=== PATIENT | female | born 1940 | race Caucasian/White ===

== ENCOUNTER 2020-02-27 10:44 | Inpatient (IN) | payer MEDICARE, OTHER ==
[~2020-02-27] VITALS: Ht 162.6 cm; Wt 35.4 kg
[~2020-02-27 10:44] MED LIST: HYDR-3927 PO; PANT40TA54 PO
[2020-02-27 11:33] LABS: BASOPHILS % (AUTO) 0.4 % (0-1); EOSINOPHILS % (AUTO) 0.4 % (0-6); HEMOGLOBIN 9.3 g/dl (12.0-16.0); LYMPHOCYTES # (AUTO) 0.4 X10'3 (1.1-4.8); LYMPHOCYTES % (AUTO) 5.3 % (21-51); MEAN CORPUSCULAR HEMOGLOBIN 23.2 PG (27.0-31.0); MEAN CORPUSCULAR HGB CONC 30.8 g/dL (33.0-36.5); MEAN CORPUSCULAR VOLUME 75.1 FL (78-98); MEAN PLATELET VOLUME 6.5 FL (7.4-10.4); MONOCYTES # (AUTO) 0.6 X10'3 (0-0.9); MONOCYTES % (AUTO) 7.7 % (2-12); NEUTROPHILS % (AUTO) 86.2 % (42-75); PLATELET COUNT 397 X10'3 (140-440); RED CELL DISTRIBUTION WIDTH 21.7 % (11.5-14.5); WHITE BLOOD COUNT 8.1 X10'3 (4.5-11.0)
[2020-02-27 11:47] LABS: ALANINE AMINOTRANSFERASE 26 U/L (12-78); ALBUMIN/GLOBULIN RATIO 0.7 (1.1-1.5); ALKALINE PHOSPHATASE 102 IU/L (46-116); ANION GAP 8 (8-16); ASPARTATE AMINO TRANSFERASE 29 U/L (10-37); BILIRUBIN,TOTAL 0.3 MG/DL (0.1-1.0); BLOOD UREA NITROGEN 26 MG/DL (7-18); BUN/CREATININE RATIO 30.6 (6.6-38.0); CALCIUM 9.1 MG/DL (8.5-10.1); CHLORIDE 108 MMOL/L (99-107); CREATININE 0.85 MG/DL (0.40-0.90); GLUCOSE 123 MG/DL (70-104); POTASSIUM 3.9 MMOL/L (3.5-5.1); SODIUM 145 MMOL/L (135-145); TOTAL CARBON DIOXIDE 29.2 MMOL/L (24-32); TOTAL PROTEIN 7.3 G/DL (6.4-8.2); eGFR 64 ML/MIN
[2020-02-27 12:08] LABS: ANISOCYTOSIS 3+; ELLIPTOCYTES 1+; MICROCYTOSIS 1+; PLATELET ESTIMATE NORMAL
[2020-02-27 12:09] LABS: POLYCHROMASIA FEW; SPHEROCYTES FEW
[2020-02-27 13:45] LABS: CLARITY,URINE SLIGHTLY CLOUDY (Clear); COLOR,URINE YELLOW (Yellow); GLUCOSE, URINE NEGATIVE (Neg); KETONES,URINE TRACE mg/dl (Neg); LEUKOCYTE ESTERASE ,URINE NEGATIVE (Neg); NITRITES, URINE NEGATIVE (Neg); OCCULT BLOOD,URINE NEGATIVE (Neg); PH,URINE 5.5 (4.8-8.0); PROTEIN,URINE 30 mg/dl (Neg); UA COLLECTION TYPE STRAIGHT CATH
[2020-02-27 13:50] LABS: HYALINE CASTS 0-3 /LPF (NEGATIVE); MUCUS STRANDS MANY /LPF (Neg); SQUAMOUS EPITHELIAL CELL,UR FEW /LPF (FEW); TRANSITIONAL EPI CELLS,URINE MODERATE /HPF
[2020-02-27 13:52] LABS: RENAL CELLS, URINE MODERATE /HPF
[2020-02-27 13:53] LABS: BACTERIA,URINE NONE SEEN /HPF (Neg); RBC,URINE 0-2 /HPF (0-2); WBC,URINE 0-4 /HPF (0-4)
[2020-02-27] MEDS ORDERED: normal saline 1000ml 1,000 ML IV ONE (14:50)
--- NOTE | 2020-02-27 14:50 | NUR ---
ASSIST PROVIDER WITH RECTAL EXAM. HEMOCULT IS POSITIVE
[2020-02-27] MEDS ORDERED: pantoprazole 40 MG vial IV ONE (14:55)
[2020-02-27] MEDS ORDERED: magnesium 4gm in 100ml NS 100 ML IV PRN (15:35)
[2020-02-27] MEDS ORDERED: ondansetron/PF 4mg/2ml inj IV PRN (15:35)
[2020-02-27] MEDS ORDERED: acetaminophen 325mg tablet PO PRN ×2 (15:35)
[2020-02-27] MEDS ORDERED: HYDROcodone/acetaminophen 10/325mg tab PO PRN (15:35)
[2020-02-27] MEDS ORDERED: morphine 2 MG/ML inj. syringe IV PRN ×2 (15:35)
[2020-02-27] MEDS ORDERED: potassium Cl 20 mEq SR tablet PO PRN (15:35)
[2020-02-27] MEDS ORDERED: potassium CL 10mEq/100ml bag 100 ML IV PRN ×2 (15:35)
[2020-02-27] MEDS ORDERED: HYDROcodone/acetaminophen 5mg/325mg tablet PO PRN (15:35)
[2020-02-27] MEDS ORDERED: magnesium hydroxide 30ml (MOM) UD suspension PO PRN (15:35)
[2020-02-27] MEDS ORDERED: magnesium 2GM in 50ml NS 50 ML IV PRN (15:35)
[2020-02-27] MEDS: normal saline 1000ml 1,000 ML IV SCH (15:35)
[2020-02-27] MEDS ORDERED: diphenhydrAMINE 25mg capsule PO PRN (15:35)
[2020-02-27] MEDS ORDERED: bisacodyl 10mg suppository rectal RC PRN (15:35)
[2020-02-27] MEDS ORDERED: acetaminophen 650mg rectal suppository RC PRN (15:35)
[2020-02-27] MEDS ORDERED: magnesium Cl slow-release 64mg tablet PO PRN (15:35)
[2020-02-27] MEDS ORDERED: mag hydrox/Alum hydrox/simeth 30ml oral suspension PO PRN (15:35)
[2020-02-27 16:14] LABS: HEMOGLOBIN A1C 4.7 % (4.5-6.2)
[2020-02-27 16:15] LABS: IRON 17 UG/DL (49-151); TOTAL IRON BINDING CAPACITY 281 UG/DL (259-388)
[2020-02-27 16:16] LABS: % IRON SATURATION 6 % (11-46)
[2020-02-27] MEDS ORDERED: PANT40TA54 PO (16:17)
[2020-02-27] MEDS: sodium ferric gluc complex inj 125 MG in normal saline 100ml IV soln 90 ML IV SCH (16:32)
[2020-02-27 19:15] VITALS: BP 157/85
--- NOTE | 2020-02-27 19:15 | NUR ---
Patient in room ORTHO 4009. I have received report from JAKE Laureano in ED and had the opportunity to ask questions and assume patient care.
[2020-02-27] MEDS: docusate sod 100mg capsule PO SCH (19:51)
[2020-02-27] MEDS: K and/or MAG REPLACEMENT MC SCH (20:00)
[2020-02-27] MEDS ORDERED: temazepam 15mg capsule PO PRN (21:00)
[2020-02-27 22:00] VITALS: BP 173/80
[2020-02-28] MEDS: normal saline 1000ml 1,000 ML IV SCH ×3 (02:49→21:35)
[2020-02-28 06:00] VITALS: BP 144/60
--- NOTE | 2020-02-28 06:35 | NUR ---
Problems reprioritized. Patient report given, questions answered & plan of care reviewed with JAKE Liu.
[2020-02-28 06:58] LABS: BASOPHILS % (AUTO) 0.5 % (0-1); EOSINOPHILS # (AUTO) 0.2 X10'3 (0-0.9); EOSINOPHILS % (AUTO) 2.4 % (0-6); HEMOGLOBIN 8.6 g/dl (12.0-16.0); LYMPHOCYTES # (AUTO) 0.6 X10'3 (1.1-4.8); LYMPHOCYTES % (AUTO) 8.4 % (21-51); MEAN CORPUSCULAR HEMOGLOBIN 23.4 PG (27.0-31.0); MEAN CORPUSCULAR HGB CONC 30.8 g/dL (33.0-36.5); MEAN CORPUSCULAR VOLUME 75.9 FL (78-98); MEAN PLATELET VOLUME 6.7 FL (7.4-10.4); MONOCYTES # (AUTO) 0.7 X10'3 (0-0.9); MONOCYTES % (AUTO) 9.5 % (2-12); NEUTROPHILS # (AUTO) 5.7 X10'3 (1.8-7.7); NEUTROPHILS % (AUTO) 79.2 % (42-75); PLATELET COUNT 329 X10'3 (140-440); RED BLOOD COUNT 3.68 X10'6 (4.20-5.60); RED CELL DISTRIBUTION WIDTH 21.6 % (11.5-14.5); WHITE BLOOD COUNT 7.2 X10'3 (4.5-11.0)
--- NOTE | 2020-02-28 07:00 | NUR ---
Patient in room ORTHO 4009. I have received report from Daisy and had the opportunity to ask questions and assume patient care.
[2020-02-28 07:08] LABS: ALANINE AMINOTRANSFERASE 17 U/L (12-78); ALBUMIN 2.5 G/DL (3.4-5.0); ALBUMIN/GLOBULIN RATIO 0.7 (1.1-1.5); ALKALINE PHOSPHATASE 89 IU/L (46-116); ANION GAP 9 (8-16); ASPARTATE AMINO TRANSFERASE 27 U/L (10-37); BILIRUBIN,TOTAL 0.4 MG/DL (0.1-1.0); BLOOD UREA NITROGEN 14 MG/DL (7-18); BUN/CREATININE RATIO 20.3 (6.6-38.0); CALCIUM 8.2 MG/DL (8.5-10.1); CHLORIDE 106 MMOL/L (99-107); CHOL/HDL RATIO 4.1 (0.00-4.99); CHOLESTEROL 186 MG/DL (0-200); CREATININE 0.69 MG/DL (0.40-0.90); GLUCOSE 79 MG/DL (70-104); HDL CHOLESTEROL 45 MG/DL (35-60); LDL CHOLESTEROL 125 MG/DL (50-100); MAGNESIUM 1.9 MG/DL (1.5-2.4); PHOSPHORUS 2.8 MG/DL (2.3-4.5); POTASSIUM 3.6 MMOL/L (3.5-5.1); SODIUM 138 MMOL/L (135-145); TOTAL CARBON DIOXIDE 23.5 MMOL/L (24-32); TOTAL PROTEIN 6.3 G/DL (6.4-8.2); TRIGLYCERIDES 104 MG/DL (20-135); eGFR 82 ML/MIN
[2020-02-28 07:20] LABS: ANISOCYTOSIS 3+; LARGE PLATELETS FEW; MICROCYTOSIS 1+; PLATELET ESTIMATE NORMAL
[2020-02-28 07:21] LABS: ELLIPTOCYTES FEW
[2020-02-28] MEDS: K and/or MAG REPLACEMENT MC SCH ×2 (07:39→20:00)
[2020-02-28] MEDS: docusate sod 100mg capsule PO SCH ×2 (08:34→19:52)
[2020-02-28] MEDS: pantoprazole 40mg Tablet.DR PO SCH (08:34)
--- NOTE | 2020-02-28 08:43 | NUR ---
Re: Gabby Keller [id number] Very hard stick. IJ went bad. We tried x2 times with no success.
[2020-02-28 10:00] VITALS: BP 140/80
[2020-02-28] MEDS: sodium ferric gluc complex inj 125 MG in normal saline 100ml IV soln 90 ML IV SCH (10:52)
--- NOTE | 2020-02-28 11:56 | NUR ---
Initial: Pt low BMI trigger 14.6 pending scaled wt this admit. Current ht 66in. likely 63in per prior admit hx. Pending accurate BMI at this time though pt clearly visible cachectic, emaciated status, and hx decreased PO as well as increased ALOC given dementia hx GRAPH[employer] GR[employer]ER per EMR. S/p fall GRAPH[employer] GR[employer]ER DX R pubic fx this admit w/ hx iron deficiency anemia and GERD per EMR. Concerns for GIB this admit as well per MD note pending stool results. Receiving routine iron supplementation per EMR. Per CT note constipation present this admit. PO pending on [employer] diet. At this time given severe visible muscle/fat wasting present pt meets minimum severe malnutrition criteria; MD notified. RD recommends ensure enlive TIDWM for additional protein/kcals. RANDEE d/w RN regarding advancing to regular diet from [employer] for additional kcals and food options if MD agreeable. Will continue to monitor for PO diet acceptance, additional protein/kcal needs, and updated BMI pending scaled wt results. Rec: 1. advance diet as medically indicated to regular; encourage PO 2. ensure enlive TIDWM; encourage PO 3. routine bowel care 4. monitor for signs of refeeding pending PO hx given malnutrition status 5. weekly wts Addendum: 02/28/20 at [address] Amended: Links added.
[2020-02-28 18:00] VITALS: BP 138/63
[2020-02-28] MEDS: mineral oil/petrolatum, white cream 113gm jar TP SCH (20:08)
[2020-02-28 22:00] VITALS: BP 150/78
--- NOTE | 2020-02-29 00:14 | NUR ---
pt up to bedside commode with aide assistance.
[2020-02-29 06:00] VITALS: BP 143/72
--- NOTE | 2020-02-29 06:10 | NUR ---
Patient in room ORTHO 4009. I have received report from [place] and had the opportunity to ask questions and assume patient care.
[2020-02-29 06:27] LABS: BASOPHILS % (AUTO) 0.5 % (0-1); EOSINOPHILS # (AUTO) 0.1 X10'3 (0-0.9); EOSINOPHILS % (AUTO) 2.6 % (0-6); HEMATOCRIT 24.5 % (35.0-45.0); HEMOGLOBIN 7.4 g/dl (12.0-16.0); LYMPHOCYTES # (AUTO) 0.6 X10'3 (1.1-4.8); LYMPHOCYTES % (AUTO) 10.7 % (21-51); MEAN CORPUSCULAR HEMOGLOBIN 22.5 PG (27.0-31.0); MEAN CORPUSCULAR HGB CONC 30.3 g/dL (33.0-36.5); MEAN CORPUSCULAR VOLUME 74.1 FL (78-98); MEAN PLATELET VOLUME 6.6 FL (7.4-10.4); MONOCYTES # (AUTO) 0.6 X10'3 (0-0.9); MONOCYTES % (AUTO) 11.4 % (2-12); NEUTROPHILS # (AUTO) 4.1 X10'3 (1.8-7.7); NEUTROPHILS % (AUTO) 74.8 % (42-75); PLATELET COUNT 314 X10'3 (140-440); RED BLOOD COUNT 3.31 X10'6 (4.20-5.60); WHITE BLOOD COUNT 5.5 X10'3 (4.5-11.0)
[2020-02-29 06:42] LABS: ALANINE AMINOTRANSFERASE 18 U/L (12-78); ALBUMIN 2.2 G/DL (3.4-5.0); ALBUMIN/GLOBULIN RATIO 0.6 (1.1-1.5); ALKALINE PHOSPHATASE 75 IU/L (46-116); ANION GAP 4 (8-16); ASPARTATE AMINO TRANSFERASE 18 U/L (10-37); BILIRUBIN,TOTAL 0.4 MG/DL (0.1-1.0); BLOOD UREA NITROGEN 12 MG/DL (7-18); BUN/CREATININE RATIO 18.5 (6.6-38.0); CALCIUM 8.3 MG/DL (8.5-10.1); CHLORIDE 107 MMOL/L (99-107); CREATININE 0.65 MG/DL (0.40-0.90); GLUCOSE 81 MG/DL (70-104); MAGNESIUM 1.9 MG/DL (1.5-2.4); PHOSPHORUS 3.4 MG/DL (2.3-4.5); POTASSIUM 3.4 MMOL/L (3.5-5.1); SODIUM 138 MMOL/L (135-145); TOTAL CARBON DIOXIDE 26.9 MMOL/L (24-32); TOTAL PROTEIN 5.8 G/DL (6.4-8.2); eGFR 87 ML/MIN
[2020-02-29 07:38] LABS: ANISOCYTOSIS 3+; ELLIPTOCYTES FEW; HYPOCHROMASIA 1+; MICROCYTOSIS 1+; PLATELET ESTIMATE NORMAL
[2020-02-29] MEDS: lactose-reduced food (Ensure Enlive) - 237ml bottle PO SCH ×3 (08:00→18:02)
[2020-02-29] MEDS: K and/or MAG REPLACEMENT MC SCH ×2 (08:00→20:34)
[2020-02-29] MEDS: docusate sod 100mg capsule PO SCH ×2 (09:09→20:24)
[2020-02-29] MEDS: mineral oil/petrolatum, white cream 113gm jar TP SCH ×2 (09:10→20:25)
[2020-02-29] MEDS: pantoprazole 40mg Tablet.DR PO SCH (09:10)
[2020-02-29] MEDS: potassium Cl 20 mEq SR tablet PO PRN ×3 (09:10→23:33)
[2020-02-29 10:00] VITALS: BP 144/84
[2020-02-29] MEDS: normal saline 1000ml 1,000 ML IV SCH ×2 (10:01→19:18)
[2020-02-29] MEDS: sodium ferric gluc complex inj 125 MG in normal saline 100ml IV soln 90 ML IV SCH (10:19)
--- NOTE | 2020-02-29 10:51 | NUR ---
Daughter called and wants to take her mom home with home health and bedside commSonia moreno budget coordinator notified along with her nurse Herminia.
[2020-02-29 18:00] VITALS: BP_SYST 116; BP_SYST 137; BP_DIAS 58; BP_DIAS 74
--- NOTE | 2020-02-29 18:19 | NUR ---
Problems reprioritized. Patient report given, questions answered & plan of care reviewed with Addie Jefferson
[2020-02-29 22:00] VITALS: BP 139/72
--- NOTE | 2020-03-01 01:24 | NUR ---
reviewed and agree with SRN assessment.
[2020-03-01] MEDS: normal saline 1000ml 1,000 ML IV SCH (06:24)
[2020-03-01 06:30] LABS: ALANINE AMINOTRANSFERASE 14 U/L (12-78); ALBUMIN 2.2 G/DL (3.4-5.0); ALBUMIN/GLOBULIN RATIO 0.6 (1.1-1.5); ALKALINE PHOSPHATASE 72 IU/L (46-116); ASPARTATE AMINO TRANSFERASE 16 U/L (10-37); BASOPHILS % (AUTO) 0.5 % (0-1); BILIRUBIN,TOTAL 0.2 MG/DL (0.1-1.0); BLOOD UREA NITROGEN 11 MG/DL (7-18); BUN/CREATININE RATIO 15.9 (6.6-38.0); CREATININE 0.69 MG/DL (0.40-0.90); EOSINOPHILS # (AUTO) 0.2 X10'3 (0-0.9); EOSINOPHILS % (AUTO) 2.9 % (0-6); GLUCOSE 88 MG/DL (70-104); HEMATOCRIT 24.3 % (35.0-45.0); HEMOGLOBIN 7.4 g/dl (12.0-16.0); LYMPHOCYTES # (AUTO) 0.7 X10'3 (1.1-4.8); LYMPHOCYTES % (AUTO) 12.4 % (21-51); MAGNESIUM 1.9 MG/DL (1.5-2.4); MEAN CORPUSCULAR HEMOGLOBIN 23.3 PG (27.0-31.0); MEAN CORPUSCULAR HGB CONC 30.7 g/dL (33.0-36.5); MEAN CORPUSCULAR VOLUME 75.9 FL (78-98); MEAN PLATELET VOLUME 6.7 FL (7.4-10.4); MONOCYTES # (AUTO) 0.8 X10'3 (0-0.9); MONOCYTES % (AUTO) 13.2 % (2-12); NEUTROPHILS # (AUTO) 4.1 X10'3 (1.8-7.7); PHOSPHORUS 2.9 MG/DL (2.3-4.5); PLATELET COUNT 316 X10'3 (140-440); RED CELL DISTRIBUTION WIDTH 21.3 % (11.5-14.5); TOTAL CARBON DIOXIDE 26.6 MMOL/L (24-32); TOTAL PROTEIN 5.8 G/DL (6.4-8.2); WHITE BLOOD COUNT 5.8 X10'3 (4.5-11.0); eGFR 82 ML/MIN
[2020-03-01 06:50] LABS: ANION GAP 6 (8-16); CHLORIDE 107 MMOL/L (99-107); POTASSIUM 4.2 MMOL/L (3.5-5.1); SODIUM 140 MMOL/L (135-145)
[2020-03-01 07:54] LABS: ANISOCYTOSIS 3+; MICROCYTOSIS 1+; PLATELET ESTIMATE NORMAL; POIKILOCYTOSIS FEW
[2020-03-01] MEDS: K and/or MAG REPLACEMENT MC SCH (08:00)
[2020-03-01] MEDS: lactose-reduced food (Ensure Enlive) - 237ml bottle PO SCH ×2 (08:00→12:53)
[2020-03-01] MEDS: mineral oil/petrolatum, white cream 113gm jar TP SCH (08:00)
[2020-03-01 08:33] VITALS: BP 139/68
[2020-03-01] MEDS: pantoprazole 40mg Tablet.DR PO SCH (09:43)
[2020-03-01] MEDS: docusate sod 100mg capsule PO SCH (09:43)
[2020-03-01] MEDS ORDERED: ASCO500C18 PO (09:52)
[2020-03-01] MEDS ORDERED: FERR325T28 PO (09:52)
[2020-03-01] MEDS ORDERED: LACT-237 PO (09:52)
[2020-03-01] MEDS ORDERED: MAGN400O6 PO (09:52)
[2020-03-01] MEDS: sodium ferric gluc complex inj 125 MG in normal saline 100ml IV soln 90 ML IV SCH (10:42)
[2020-03-01 12:11] VITALS: BP 143/76
--- NOTE | 2020-03-01 13:22 | NUR ---
pt DC unable to take photos
== END 2020-03-01 14:05 | disposition home health service (06) | DRG 535 ==
LOC: ER 10:44 → ED HOLD 15:32 → ORTHO 4S 19:15
PROVIDERS: ADMIT Family Medicine; ATTEND Family Medicine
DX: S32.591A Other specified fracture of right pubis, initial encounter for closed fracture (principal); E43 Unspecified severe protein-calorie malnutrition; R64 Cachexia; Z68.1 Body mass index [BMI] 19.9 or less, adult; K92.2 Gastrointestinal hemorrhage, unspecified; R29.6 Repeated falls; H54.8 Legal blindness, as defined in USA; H91.90 Unspecified hearing loss, unspecified ear; Z90.49 Acquired absence of other specified parts of digestive tract; I10 Essential (primary) hypertension; F03.90 Unspecified dementia, unspecified severity, without behavioral disturbance, psychotic disturbance, mood disturbance, and anxiety; M43.17 Spondylolisthesis, lumbosacral region; M54.9 Dorsalgia, unspecified; K21.9 Gastro-esophageal reflux disease without esophagitis; D50.9 Iron deficiency anemia, unspecified; R32 Unspecified urinary incontinence; W18.39XA Other fall on same level, initial encounter; Y93.89 Activity, other specified; Y92.89 Other specified places as the place of occurrence of the external cause; Y99.8 Other external cause status; M47.817 Spondylosis without myelopathy or radiculopathy, lumbosacral region; Z79.899 Other long term (current) drug therapy; Z86.73 Personal history of transient ischemic attack (TIA), and cerebral infarction without residual deficits; Z82.49 Family history of ischemic heart disease and other diseases of the circulatory system; R53.81 Other malaise; K22.2 Esophageal obstruction
CPT/HCPCS: 36415; 71045; 72131; 72192; 76937; 80053; 80061; 81001; 82272; 82728; 83036; 83540; 83550; 83735; 84100; 84443; 85008; 85025; 86885; 86900; 86901; 87081; 96374; 97110; 97116; 97161; 97530; 97535; 99285; C9113; G0378; J2916; J7030

== ENCOUNTER 2020-03-23 13:08 | Emergency (ER) | payer MEDICARE, OTHER ==
[~2020-03-23] VITALS: Ht 157.5 cm; Wt 36.4 kg
[~2020-03-23 13:08] MED LIST changes: +ASCO500C18 PO; +FERR325T28 PO; -HYDR-3927 PO; +LACT-237 PO; +MAGN400O6 PO
--- NOTE | 2020-03-23 13:13 | NUR ---
PT TO CT VIA EUGENIO WHYTE IS ON TRANSPORT MONITOR WITH FAINA JOSEPH.
[2020-03-23] MEDS ORDERED: iohexol 350MG/ML 100ml bottle IV ONE (13:14)
--- NOTE | 2020-03-23 13:30 | NUR ---
Called and spoke to hospice care sales consultant who states patient was last known normal last night was not acting right this morning leaning to the left.
[2020-03-23] MEDS ORDERED: octreotide inj. 1,250 MCG in normal saline 250ml IV soln 243.75 ML IV ONE (13:45)
[2020-03-23] MEDS ORDERED: famotidine/PF 10 mg/ml inj IV ONE (13:45)
[2020-03-23] MEDS ORDERED: pantoprazole 40MG/NS 100ML BAG 100 ML IV SCH (13:45)
[2020-03-23] MEDS ORDERED: pantoprazole 40 MG vial IV ONE (13:45)
[2020-03-23] MEDS ORDERED: normal saline 1000ML IV soln IV ONE (13:45)
[2020-03-23 13:51] LABS: BASOPHILS % (AUTO) 0.3 % (0-1); EOSINOPHILS % (AUTO) 0.1 % (0-6); HEMATOCRIT 29.9 % (35.0-45.0); HEMOGLOBIN 9.7 g/dl (12.0-16.0); LYMPHOCYTES # (AUTO) 0.2 X10'3 (1.1-4.8); LYMPHOCYTES % (AUTO) 2.2 % (21-51); MEAN CORPUSCULAR HEMOGLOBIN 27.6 PG (27.0-31.0); MEAN CORPUSCULAR HGB CONC 32.3 g/dL (33.0-36.5); MEAN CORPUSCULAR VOLUME 85.4 FL (78-98); MEAN PLATELET VOLUME 6.6 FL (7.4-10.4); MONOCYTES # (AUTO) 0.7 X10'3 (0-0.9); MONOCYTES % (AUTO) 6.5 % (2-12); NEUTROPHILS # (AUTO) 9.7 X10'3 (1.8-7.7); NEUTROPHILS % (AUTO) 90.9 % (42-75); PLATELET COUNT 332 X10'3 (140-440); RED CELL DISTRIBUTION WIDTH 28.5 % (11.5-14.5); WHITE BLOOD COUNT 10.7 X10'3 (4.5-11.0)
[2020-03-23 13:59] LABS: PARTIAL THROMBOPLASTIN TIME 21 SECONDS (22-32)
[2020-03-23 14:01] LABS: ALANINE AMINOTRANSFERASE 13 U/L (12-78); ALBUMIN 2.5 G/DL (3.4-5.0); ALBUMIN/GLOBULIN RATIO 0.8 (1.1-1.5); ALKALINE PHOSPHATASE 116 IU/L (46-116); ANION GAP 5 (8-16); ASPARTATE AMINO TRANSFERASE 17 U/L (10-37); BILIRUBIN,TOTAL 0.3 MG/DL (0.1-1.0); BLOOD UREA NITROGEN 15 MG/DL (7-18); CALCIUM 8.1 MG/DL (8.5-10.1); CHLORIDE 101 MMOL/L (99-107); CREATININE 0.79 MG/DL (0.40-0.90); ETHANOL < 0.010 GM/DL (0.0-0.010); GLUCOSE 126 MG/DL (70-104); POTASSIUM 3.7 MMOL/L (3.5-5.1); SODIUM 135 MMOL/L (135-145); TOTAL CARBON DIOXIDE 29.3 MMOL/L (24-32); TOTAL PROTEIN 5.5 G/DL (6.4-8.2); eGFR 70 ML/MIN
[2020-03-23 14:23] LABS: ANISOCYTOSIS 3+; MICROCYTOSIS 1+; PLATELET ESTIMATE NORMAL; POIKILOCYTOSIS FEW; SCHISTOCYTES FEW
[2020-03-23 19:25] VITALS: BP 109/85
[2020-03-24 06:03] LABS: OCCULT BLOOD STOOL POSITIVE (Neg)
== END 2020-03-23 19:20 | disposition home or self-care (01) ==
LOC: ER 13:08
DX: K92.2 Gastrointestinal hemorrhage, unspecified (principal); R41.82 Altered mental status, unspecified; F03.90 Unspecified dementia, unspecified severity, without behavioral disturbance, psychotic disturbance, mood disturbance, and anxiety; I10 Essential (primary) hypertension; D50.0 Iron deficiency anemia secondary to blood loss (chronic); G89.29 Other chronic pain; Z90.49 Acquired absence of other specified parts of digestive tract; Z98.890 Other specified postprocedural states; Z90.01 Acquired absence of eye; Z79.899 Other long term (current) drug therapy; Z86.73 Personal history of transient ischemic attack (TIA), and cerebral infarction without residual deficits
CPT/HCPCS: 36415; 70450; 70496; 70498; 71045; 80053; 80320; 82272; 82948; 83605; 84145; 85008; 85025; 85610; 85730; 86885; 86900; 86901; 93005; 96365; 96368; 96375; 96376; 99291; C9113; J2354; J3490; J7030; J7050; Q9967